=== PATIENT | female | born 1965 | race Caucasian/White ===

== ENCOUNTER 2019-07-09 19:30 | Emergency (ER) | payer BC ==
[~2019-07-09] VITALS: Ht 165.1 cm; Wt 61.8 kg
[2019-07-09] MEDS ORDERED: traMADol 50 MG TAB (BULK 4 TAB ED) PO ONE (20:45)
[2019-07-09] MEDS ORDERED: ACETAMINOPHEN TAB 650MG DOSE (2X325MG) PO ONE (20:45)
[2019-07-09 20:55] VITALS: BP 134/78
--- NOTE | 2019-07-10 10:10 | REP ---
Clinical: Left shoulder trauma . Technique: Internal rotation, external rotation, and Y view left shoulder . Findings: No acute fracture or dislocation. The acromioclavicular and glenohumeral joints are intact. No periarticular calcifications or degenerative changes are appreciated. Sub acromial space is normal. Surrounding soft tissues are unremarkable. Impression: Normal left shoulder radiographs. No acute fracture or dislocation appreciated. Electronically Signed by Flynn Grant MD 07/10/2019 10:01 A
== END 2019-07-09 20:56 | disposition home or self-care (01) ==
LOC: M ED 19:30
DX: M62.838 Other muscle spasm (principal); W18.09XA Striking against other object with subsequent fall, initial encounter; Y92.62 Dock or shipyard as the place of occurrence of the external cause; Y93.9 Activity, unspecified; N92.6 Irregular menstruation, unspecified; Z88.6 Allergy status to analgesic agent